=== PATIENT | male | born 2000 | race Caucasian/White ===

== ENCOUNTER 2019-05-01 19:13 | Emergency (ER) | payer BC ==
[2019-05-01] MEDS ORDERED: Ketorolac 30 MG/ML SDV IM ONE (19:46)
[2019-05-01] MEDS ORDERED: Cyclobenzaprine 10 MG Tab PO ONE (19:46)
--- NOTE | 2019-05-01 21:18 | EDM.PDOC ---
ED HPI GENERAL MEDICAL PROBLEM - General Chief Complaint: Back Pain or Injury Stated Complaint: LOWER BACK PAIN AND NAUSEA Time Seen by Provider: 05/01/19 19:20 Source of Information: Reports: Patient History Limitations: Reports: No Limitations - History of Present Illness INITIAL COMMENTS - FREE TEXT/NARRATIVE: onset tonight while at supper, has not taken anything for pain, describes as pressure. No injusy, Radiates across low back, constant no spasm type. @Q previous similar episodes not as severe after workout. No prior hx back injury. Lower Back Pain Score (Numeric/FACES): 5 - Related Data Allergies Allergy/AdvReac Type Severity Reaction Status Date / Time No Known Allergies Allergy Verified 05/01/19 19:21 Home Meds: Home Meds . [No Known Home Meds] 05/01/19 [History] Past Medical History - Past Health History Medical/Surgical History: Denies Medical/Surgical History Social & Family History - Tobacco Use Smoking Status *Q: Never Smoker Second Hand Smoke Exposure: No - Recreational Drug Use Recreational Drug Use: No ED ROS GENERAL - Review of Systems Review Of Systems: Comprehensive ROS is negative, except as noted in HPI. ED EXAM,LOWER BACK PAIN/INJURY - Physical Exam Exam: See Below Exam Limited By: No Limitations General Appearance: Alert, Anxious, Mild Distress Eye Exam: Bilateral Eye: EOMI Ears: Normal External Exam Nose: Normal Inspection Throat/Mouth: Normal Inspection Head: Atraumatic, Normocephalic Neck: Normal Inspection Respiratory/Chest: No Respiratory Distress, Lungs Clear, Normal Breath Sounds Cardiovascular: Normal Peripheral Pulses, Regular Rate, Rhythm GI/Abdominal: Normal Bowel Sounds, Soft, Non-Tender Back Exam: Full Range of Motion (guarded movments), Paraspinal Tenderness ( bilateral mid lumbar). No: CVA Tenderness (L), CVA Tenderness (R), Decreased Range of Motion, Vertebral Tenderness Extremities: Normal Range of Motion. No: Leg Pain Neurological: Alert, Normal Dorsiflexion, Normal Reflexes, No Motor/Sensory Deficits, Oriented x 3. No: Straight Leg Raise (L), Straight Leg Raise (R), Saddle Anesthesia, Difficulty Walking Psychiatric: Anxious Skin Exam: Warm, Dry, Intact, Normal Color Course - Vital Signs Last Recorded V/S: Last Vital Signs Temp 99.1 F 05/01/19 19:18 Pulse 68 05/01/19 19:18 Resp 18 05/01/19 19:18 BP 155/77 H 05/01/19 19:18 Pulse Ox 100 05/01/19 19:18 - Orders/Labs/Meds Labs: Laboratory Tests 05/01/19 05/01/19 Range/Units 19:25 19:25 Urine Color Yellow (YELLOW) Urine Appearance Slightly cloudy (CLEAR) Urine pH 7.5 (5.0-9.0) Ur Specific [place] 1.025 (1.005-1.030) Urine Protein Negative (NEGATIVE) Urine Glucose (UA) Negative (NEGATIVE) Urine Ketones Negative (NEGATIVE) Urine Occult Blood Negative (NEGATIVE) Urine Nitrite Negative (NEGATIVE) Urine Bilirubin Negative (NEGATIVE) Urine Urobilinogen 0.2 (0.2-1.0) mg/dL Ur Leukocyte Esterase Negative (NEGATIVE) Urine Opiates Screen Negative (NEGATIVE) Ur Oxycodone Screen Negative (NEGATIVE) Urine Methadone Screen Negative (NEGATIVE) Ur Barbiturates Screen Negative (NEGATIVE) U Tricyclic Antidepress Negative (NEGATIVE) Ur Phencyclidine Scrn Negative (NEGATIVE) Ur Amphetamine Screen Negative (NEGATIVE) U Methamphetamines Scrn Negative (NEGATIVE) Urine MDMA Screen Negative (NEGATIVE) U Benzodiazepines Scrn Negative (NEGATIVE) Urine Cocaine Screen Negative (NEGATIVE) U Marijuana (THC) Screen Negative (NEGATIVE) Meds: Medications Discontinued Medications Generic Name Dose Route Start Last Admin Trade Name Freq PRN Reason Stop Dose Admin Cyclobenzaprine HCl 10 mg 05/01/19 19:46 05/01/19 19:53 Flexeril PO 05/01/19 19:47 10 mg ONETIME ONE Administration Ketorolac Tromethamine 30 mg 05/01/19 19:46 05/01/19 19:54 Toradol IM 05/01/19 19:47 30 mg ONETIME ONE Administration - Radiology Interpretation Free Text/Narrative:: sclerotic lesion left iliac wing - Re-Assessments/Exams Free Text/Narrative Re-Assessment/Exam: Discussed findings with patient. Recommend follow up for further evaluation with possible MRI. Pain improved folling Toradal and Flexeril. Gait steady , Copy of xrays sent with patient . Departure - Departure Time of Disposition: 21:14 Disposition: Home, Self-Care 01 Condition: Good Clinical Impression: Abnormal x-ray of bone Back pain Qualifiers: Back pain location: low back pain Chronicity: acute Back pain laterality: bilateral Sciatica presence: without sciatica Qualified Code(s): M54.5 - Low back pain - Discharge Information *PRESCRIPTION DRUG MONITORING PROGRAM REVIEWED*: No *COPY OF PRESCRIPTION DRUG MONITORING REPORT IN PATIENT MIKE: No Instructions: Acute Back Pain, Adult Referrals: Mary Grace Jackson PA [Primary Care Provider] - Forms: ED Department Discharge Additional Instructions: Follow up in clinic with Primary care for further evaluation of sclerotic lesion on left iliac wing ibuprofen 600mg every 6 hours as needed for discomfort may alternate with tylenol 650mg every 4 hours limit high impact activity until further evaluation ice or heat to low back, Sepsis Event Note - Evaluation Sepsis Screening Result: No Definite Risk - Focused Exam Date Exam was Performed: 05/02/19 Time Exam was Performed: 22:55
== END 2019-05-01 21:30 | disposition home or self-care (01) ==
LOC: DL.ED 19:13
DX: M54.5 Low back pain (principal); R93.7 Abnormal findings on diagnostic imaging of other parts of musculoskeletal system
CPT/HCPCS: 72100; 72190; 80305; 81003; 96372; 99283; A9270; J1885

== ENCOUNTER 2024-03-22 10:51 | Emergency (ER) | payer BC | END 2024-03-22 12:16 | disposition home or self-care (01) | LOC: DL.ED 10:51 | DX: G47.00 Insomnia, unspecified (principal) | CPT/HCPCS: 70450; 99284 ==

== ENCOUNTER 2024-03-27 08:45 | Emergency (ER) | payer BC ==
[2024-03-27 09:25] LABS: AMPHETAMINES,URINE NEGATIVE (NEGATIVE); BARBITURATES,URINE NEGATIVE (NEGATIVE); BENZODIAZEPINE,URINE NEGATIVE (NEGATIVE); MDMA (ECSTASY), URINE NEGATIVE (NEGATIVE); METHADONE,URINE NEGATIVE (NEGATIVE); METHAMPHETAMINES,URINE NEGATIVE (NEGATIVE); OPIATES,URINE NEGATIVE (NEGATIVE); OXYCODONE,URINE NEGATIVE (NEGATIVE); PHENCYCLIDINE,URINE NEGATIVE (NEGATIVE); TCA,URINE NEGATIVE (NEGATIVE)
[2024-03-27] MEDS: Take Home: LORazepam 1 MG Tab, 2 Tab Pack PO ONE (09:49)
== END 2024-03-27 09:53 | disposition home or self-care (01) ==
LOC: DL.ED 08:45
DX: G47.00 Insomnia, unspecified (principal)
CPT/HCPCS: 80305-QW; 99282; 99283; A9270-GY